=== PATIENT | female | born 1930 | race Caucasian/White ===

== ENCOUNTER 2017-10-30 14:49 | Emergency (ER) | payer MEDICARE ==
[~2017-10-30] VITALS: Ht 157.5 cm; Wt 50.7 kg
[~2017-10-30 14:49] MED LIST: ADVI200C9 PO
[2017-10-30 14:52] VITALS: BP 135/64; PULSE 105; RESP 20; TEMP 100.1; O2SAT 90
[2017-10-30] MEDS ORDERED: SODIUM CHLORIDE 0.9% FLUSH 10 ML FLUSH IV FLUSH PRN (15:30)
[2017-10-30] MEDS ORDERED: SODIUM CHLOR 0.9% 1000 ML INJ 1,000 ML IV SCH (15:30)
[2017-10-30] MEDS ORDERED: DICYCLOMINE HCL 10 MG CAP PO ONE (15:30)
[2017-10-30 15:34] VITALS: RESP 18; O2SAT 94
--- NOTE | 2017-10-30 15:36 | PD ---
HPI Chief Complaint: Cold / Flu Symptoms Time Seen by Provider: 14:57 Travel History International Travel<30 days: No Contact w/Intl Traveler<30days: No Traveled to known affect area: No History of Present Illness HPI The patient is 87-year-old female who presents to the emergency department for cough and cold symptoms since last Monday. Patient complains of a dry mostly nonproductive cough, dry throat, and diarrhea. Patient describes the diarrhea as loose, watery, and present after eating. She also complains of generalized abdominal cramping after eating that is associated with the diarrhea. She does note some left lower quadrant abdominal pain. She denies any specific myalgias or arthralgias. She denies any associated dysuria , frequency, or urgency. She denies any sick contacts at home. Symptoms are moderate. The patient does have a history of non-Hodgkin's lymphoma which is in remission, followed by Dr. Chiang. The patient is also followed by her primary physician, Dr. Billie Evans. [facility] Past Medical History Cancer: Yes (NON HODGKINS LYMPHOMA) Diabetes: No Hepatitis: Yes Hiatal Hernia: No Thyroid Disease: No Past Surgical History Abdominal Surgery: No Cardiac Surgery: No Ear Surgery: No Endocrine Surgery: Yes (THYROID MASS REMOVED) Eye Surgery: No Genitourinary Surgery: No Gynecologic Surgery: No Oral Surgery: No Pacemaker: No Thoracic Surgery: No Social History Tobacco Use: No Allergies-Medications (Allergen,Severity, Reaction): Coded Allergies: No Known Allergies (Verified Adverse Reaction, Unknown, 10/30/17) Reported Meds & Prescriptions Reported Meds & Active Scripts Active Review of Systems Except as stated in HPI: all other systems reviewed are Neg General / Constitutional: No: Fever Cardiovascular: No: Chest Pain or Discomfort Respiratory: Positive: Cough, No: Shortness of Breath, Wheezing Gastrointestinal: Positive: Diarrhea, Abdominal Pain, Loss of Appetite, No: Nausea, Vomiting Genitourinary: No: Dysuria Musculoskeletal: No: Myalgias, Arthralgias Physical Exam Narrative GENERAL: Awake, alert, very pleasant 87-year-old female who appears her stated age and is in no acute respiratory distress. SKIN: Focused skin assessment warm/dry. HEAD: Atraumatic. Normocephalic. EYES: No injection or drainage. ENT: No nasal bleeding or discharge. Slightly dry mucous membranes. Cobblestoning of posterior oropharynx. NECK: Trachea midline. No JVD. CARDIOVASCULAR: Regular, tachycardic with a heart rate of 105. RESPIRATORY: No accessory muscle use. Clear to auscultation. Breath sounds equal bilaterally. GASTROINTESTINAL: Abdomen soft, tender to palpation left lower quadrant. No guarding rigidity. Back: No CVA tenderness. MUSCULOSKELETAL: No obvious deformities. No clubbing. No cyanosis. No edema. NEUROLOGICAL: Awake and alert. No obvious cranial nerve deficits. Motor grossly within normal limits. Normal speech. PSYCHIATRIC: Appropriate mood and affect; insight and judgment normal. Data Data Last Documented VS Vital Signs Date Time Temp Pulse Resp B/P (MAP) Pulse Ox O2 Delivery O2 Flow Rate FiO2 10/30/17 16:21 82 20 141/69 (93) 95 Nasal Cannula 2.00 10/30/17 14:52 100.1 Orders Orders Complete Blood Count With Diff (10/30/17 15:30) Comprehensive Metabolic Panel (10/30/17 15:30) Lipase (10/30/17 15:30) Lactic Acid (10/30/17 15:30) Urinalysis - C+S If Indicated (10/30/17 15:30) Ct Abd/Pel W/O Iv Contrast (10/30/17 15:30) Iv Access Insert/Monitor (10/30/17 15:30) Ecg Monitoring (10/30/17 15:30) Oximetry (10/30/17 15:30) Sodium Chlor 0.9% 1000 Ml Inj (Ns 1000 M (10/30/17 15:30) Sodium Chloride 0.9% Flush (Ns Flush) (10/30/17 15:30) Electrocardiogram (10/30/17 15:30) Chest, Single Ap (10/30/17 15:30) Dicyclomine (Bentyl) (10/30/17 15:30) Legionella Urinary Antigen (10/30/17 15:30) Influenzae A/B Antigen (10/30/17 15:32) Albuterol-Ipratropium Neb (Duoneb Neb) (10/30/17 17:00) Ciprofloxacin (Cipro) (10/30/17 17:15) Metronidazole 500 Mg Inj (Flagyl 500 Mg (10/30/17 17:15) Labs Laboratory Tests Test 10/30/17 16:00 10/30/17 16:13 White Blood Count 6.4 TH/MM3 Red Blood Count 3.89 MIL/MM3 Hemoglobin 12.4 GM/DL Hematocrit 37.0 % Mean Corpuscular Volume 95.2 FL Mean Corpuscular Hemoglobin 31.9 PG Mean Corpuscular Hemoglobin Concent 33.5 % Red Cell Distribution Width 13.0 % Platelet Count 183 TH/MM3 Mean Platelet Volume 7.4 FL Neutrophils (%) (Auto) 50.8 % Lymphocytes (%) (Auto) 39.3 % Monocytes (%) (Auto) 6.5 % Eosinophils (%) (Auto) 0.7 % Basophils (%) (Auto) 2.7 % Neutrophils # (Auto) 3.3 TH/MM3 Lymphocytes # (Auto) 2.5 TH/MM3 Monocytes # (Auto) 0.4 TH/MM3 Eosinophils # (Auto) 0.0 TH/MM3 Basophils # (Auto) 0.2 TH/MM3 CBC Comment DIFF FINAL Differential Comment Blood Urea Nitrogen 12 MG/DL Creatinine 0.84 MG/DL Random Glucose 118 MG/DL Total Protein 6.4 GM/DL Albumin 3.2 GM/DL Calcium Level 9.1 MG/DL Alkaline Phosphatase 68 U/L Aspartate Amino Transf (AST/SGOT) 18 U/L Alanine Aminotransferase (ALT/SGPT) 16 U/L Total Bilirubin 0.5 MG/DL Sodium Level 136 MEQ/L Potassium Level 3.9 MEQ/L Chloride Level 101 MEQ/L Carbon Dioxide Level 28.7 MEQ/L Anion Gap 6 MEQ/L Estimat Glomerular Filtration Rate 64 ML/MIN Lactic Acid Level 0.8 mmol/L Lipase 91 U/L Urine Color YELLOW Urine Turbidity CLEAR Urine pH 6.0 Urine Specific Marion 1.020 Urine Protein TRACE mg/dL Urine Glucose (UA) NEG mg/dL Urine Ketones NEG mg/dL Urine Occult Blood NEG Urine Nitrite NEG Urine Bilirubin NEG Urine Urobilinogen 0.2 MG/DL Urine Leukocyte Esterase NEG MDM Medical Decision Making Medical Screen Exam Complete: Yes Emergency Medical Condition: Yes Medical Record Reviewed: Yes Interpretation(s) EKG reveals normal sinus rhythm with a rate of 94. Left axis deviation. No ischemic changes noted. Date/Time Source Procedure Growth Status 10/30/17 16:05 Nasal Aspirate Influenza Types A,B Antigen (FELICIANO) - Final NEGATIVE FOR FLU A AND B ANTIGEN.... Complete 10/30/17 16:13 Urine Clean Catch Legionella Antigen Pending Received Laboratory Tests Test 10/30/17 16:00 10/30/17 16:13 White Blood Count 6.4 TH/MM3 Red Blood Count 3.89 MIL/MM3 Hemoglobin 12.4 GM/DL Hematocrit 37.0 % Mean Corpuscular Volume 95.2 FL Mean Corpuscular Hemoglobin 31.9 PG Mean Corpuscular Hemoglobin Concent 33.5 % Red Cell Distribution Width 13.0 % Platelet Count 183 TH/MM3 Mean Platelet Volume 7.4 FL Neutrophils (%) (Auto) 50.8 % Lymphocytes (%) (Auto) 39.3 % Monocytes (%) (Auto) 6.5 % Eosinophils (%) (Auto) 0.7 % Basophils (%) (Auto) 2.7 % Neutrophils # (Auto) 3.3 TH/MM3 Lymphocytes # (Auto) 2.5 TH/MM3 Monocytes # (Auto) 0.4 TH/MM3 Eosinophils # (Auto) 0.0 TH/MM3 Basophils # (Auto) 0.2 TH/MM3 CBC Comment DIFF FINAL Differential Comment Blood Urea Nitrogen 12 MG/DL Creatinine 0.84 MG/DL Random Glucose 118 MG/DL Total Protein 6.4 GM/DL Albumin 3.2 GM/DL Calcium Level 9.1 MG/DL Alkaline Phosphatase 68 U/L Aspartate Amino Transf (AST/SGOT) 18 U/L Alanine Aminotransferase (ALT/SGPT) 16 U/L Total Bilirubin 0.5 MG/DL Sodium Level 136 MEQ/L Potassium Level 3.9 MEQ/L Chloride Level 101 MEQ/L Carbon Dioxide Level 28.7 MEQ/L Anion Gap 6 MEQ/L Estimat Glomerular Filtration Rate 64 ML/MIN Lactic Acid Level 0.8 mmol/L Lipase 91 U/L Urine Color YELLOW Urine Turbidity CLEAR Urine pH 6.0 Urine Specific [place] 1.020 Urine Protein TRACE mg/dL Urine Glucose (UA) NEG mg/dL Urine Ketones NEG mg/dL Urine Occult Blood NEG Urine Nitrite NEG Urine Bilirubin NEG Urine Urobilinogen 0.2 MG/DL Urine Leukocyte Esterase NEG Last Impressions Chest X-Ray 10/30/17 1530 Signed Impressions: CONCLUSION: Right [id number] in superior vena cava. Mild interstitial prominence. No con solidation or effusion. Abdomen/Pelvis CT 10/30/17 1530 Signed Impressions: CONCLUSION: 1. Mild proximal sigmoid diverticulitis without evidence for abscess, obstruct ion, free fluid or free air. 2. No acute findings within the remainder of the abdomen. Small hiatal hernia. 3. Mild bronchiectasis in distal airway disease at the left lung base. Differential Diagnosis Differential diagnosis includes influenza, viral syndrome, pneumonia, Legionella enteritis, diverticulitis, dehydration, acute kidney injury, pyelonephritis. Narrative Course IV was established, labs are drawn and sent, the patient was placed on cardiac telemetry monitoring and continuous pulse oximetry monitoring. EKG was ordered and interpreted. Chest x-ray was obtained. Noncontrast CT the abdomen and pelvis was obtained. The patient was administered Bentyl and IV fluids. Legionella antigen via UA was sent to lab. CBC reveals normal white count. Lactic acid is normal at 0.8. Influenza screen is negative. Chest x-ray is negative for pneumonia. CT the abdomen and pelvis reveals mild bronchiectasis in the left lower lung as well as mild diverticulitis in the proximal sigmoid colon. Therefore, the patient was administered Cipro orally and Flagyl intravenously. I had a discussion with the patient regarding 23 hour observation versus discharge home. The patient would prefer to be discharged home. She states her symptoms have improved. I did advise her to return if she has intractable nausea/vomiting, shortness of breath, or inability to tolerate medications. The patient agrees and understands. I did offer 23 hour observation but the patient would prefer to go home, with normal white count, normal lactic acid, and heart rate that is now in the 80s a believe this is manageable at home, but she is advised strongly to return if symptoms worsen or progress at any time. Diagnosis Primary Impression: Diverticulitis Patient Instructions: General Instructions Additional Instructions: Please provide the patient a copy of her labs, x-ray results, and CT results at discharge. Follow-up with your primary physician. Return at any point for worsening or progressing symptoms or inability to tolerate medications. Follow- up with her primary physician tomorrow if possible. Med/Other Pt SpecificInfo: Prescription(s) given Scripts Metronidazole (Flagyl) 500 Mg Tab 500 MG PO BID for Infection for 7 Days, #14 TAB 0 Refills Prov: Donavon Castro MD 10/30/17 Ciprofloxacin (Cipro) 500 Mg Tab 500 MG PO BID for Infection for 7 Days, #14 TAB 0 Refills Prov: Donavon Castro MD 10/30/17 Disposition: 01 DISCHARGE HOME Condition: Stable Donavon Castro MD October 30, 2017 15:36
--- NOTE | 2017-10-30 15:51 | RADRPT ---
EXAM DATE: 10/30/2017 3:48 PM EDT AGE/SEX: 87 years / Female INDICATIONS: Cough. CLINICAL DATA: This is the patient's initial encounter. Patient reports that signs and symptoms have been present for 4 - 6 days and indicates a pain score of 0/10. MEDICAL/SURGICAL HISTORY: Hypertension. Non Hodgkin's lymphoma . Thyroid COMPARISON: No prior [place] exams available for comparison. FINDINGS: No consolidation or effusion. Tortuous aorta. Heart size within normal limits. Right [id number] in superior vena cava. CONCLUSION: Right [id number]-b-Mjkl in superior vena cava. Mild interstitial prominence. No consolidation or effusion . Electronically signed by: Jamie Metcalf MD 10/30/2017 3:50 PM EDT
[2017-10-30 16:20] LABS: AUTOMATED NEUTROPHIL # 3.3 TH/MM3 (1.8-7.7); BASOPHIL # 0.2 TH/MM3 (0-0.2); BASOPHIL % 2.7 % (0.0-2.0); EOSINOPHIL % 0.7 % (0.0-4.0); HEMOGLOBIN 12.4 GM/DL (11.6-15.3); LYMPH % 39.3 % (9.0-44.0); LYMPHOCYTE # 2.5 TH/MM3 (1.0-4.8); MEAN CELL VOLUME 95.2 FL (80.0-100.0); MEAN CORPUSCULAR HEMOGLOBIN 31.9 PG (27.0-34.0); MEAN CORPUSCULAR HGB CONC 33.5 % (32.0-36.0); MEAN PLATELET VOLUME 7.4 FL (7.0-11.0); MONO % 6.5 % (0.0-8.0); MONOCYTE # 0.4 TH/MM3 (0-0.9); NEUT % 50.8 % (16.0-70.0); PLATELET COUNT 183 TH/MM3 (150-450); RED BLOOD COUNT 3.89 MIL/MM3 (4.00-5.30); WHITE BLOOD COUNT 6.4 TH/MM3 (4.0-11.0)
[2017-10-30 16:21] VITALS: BP 141/69; PULSE 82; RESP 20; O2SAT 95
[2017-10-30 16:30] LABS: CHLORIDE 101 MEQ/L (98-107); SODIUM (NA) 136 MEQ/L (136-145)
[2017-10-30 16:33] LABS: CALCIUM 9.1 MG/DL (8.5-10.1)
[2017-10-30 16:34] LABS: ALBUMIN 3.2 GM/DL (3.4-5.0); BICARBONATE 28.7 MEQ/L (21.0-32.0); BLOOD UREA NITROGEN 12 MG/DL (7-18); GLUCOSE,RANDOM 118 MG/DL (74-106)
[2017-10-30 16:35] LABS: BILIRUBIN, URINE NEG (NEG); BLOOD, URINE NEG (NEG); GLUCOSE,URINE NEG (NEG); KETONE, URINE NEG (NEG); NITRITE,URINE NEG (NEG); URINE COLOR YELLOW (YELLW/STRAW); URINE LEUKOCYTE ESTERASE NEG (NEG)
[2017-10-30 16:37] LABS: ALT (GPT) 16 U/L (10-53); AST (GOT) 18 U/L (15-37); CREATININE 0.84 MG/DL (0.50-1.00); GLOMERULAR FILTRATION RATE 64 ML/MIN (>89)
[2017-10-30 16:38] LABS: TOTAL BILIRUBIN ADULT 0.5 MG/DL (0.2-1.0); TOTAL PROTEIN 6.4 GM/DL (6.4-8.2)
[2017-10-30 16:39] LABS: ALKALINE PHOSPHATASE 68 U/L (45-117)
--- NOTE | 2017-10-30 16:59 | RADRPT ---
EXAM DATE: 10/30/2017 4:54 PM EDT AGE/SEX: 87 years / Female INDICATIONS: Left lower abdomen pain and diarrhea for five days. CLINICAL DATA: This is the patient's initial encounter. Patient reports that signs and symptoms have been present for 4 - 6 days and indicates a pain score of 6/10. MEDICAL/SURGICAL HISTORY: Lymphoma. Hypertension. . thyroid mass removed RADIATION DOSE: 5.71 CTDI (mGy) COMPARISON: No prior [place] exams available for comparison. TECHNIQUE: Multiple contiguous axial images were obtained through the abdomen. Images were obtained using multiple row detector helical technique. Using dose reduction techniques, radiation dose was ke pt as low as reasonably achievable to obtain optimal diagnostic quality images. FINDINGS: At the left lung base is peribronchial thickening and some distal airway disease with mild bronchiect asis. No acute findings in the liver, spleen, adrenals, kidneys or pancreas. No calcified gallstones or elvin iary ductal dilatation. Small hiatal hernia. Mild scoliosis with moderate degenerative change in the lumbar spine. No pelvic masses or adenopathy. Colonic diverticula noted with some mild inflammatory c hanges around the proximal sigmoid colon most characteristic of a mild sigmoid diverticulitis. CONCLUSION: 1. Mild proximal sigmoid diverticulitis without evidence for abscess, obstruction, free fluid or ap e air. 2. No acute findings within the remainder of the abdomen. Small hiatal hernia. 3. Mild bronchiectasis in distal airway disease at the left lung base. Electronically signed by: Jamie Metcalf MD 10/30/2017 4:58 PM EDT
[2017-10-30] MEDS ORDERED: RESP: ALBUTEROL 2.5 MG/IPRATROPIUM 0.5 MG NEB (SCH) NEB ONE (17:00)
[2017-10-30 17:10] VITALS: O2SAT 98
[2017-10-30] MEDS ORDERED: CIPR-9 PO (17:10)
[2017-10-30] MEDS ORDERED: METR-1 PO (17:10)
[2017-10-30 17:12] LABS: MUCUS URINE RARE /lpf (OCC); SQUAMOUS EPITHELIAL CELL URINE 0-1 /hpf (0-5); WBC, URINE 0-2 /hpf (0-5)
[2017-10-30] MEDS ORDERED: CIPROFLOXACIN 500 MG TAB PO ONE (17:15)
[2017-10-30] MEDS ORDERED: metroNIDAZOLE 500 MG INJ 100 ML IV ONE (17:15)
[2017-10-30 18:56] VITALS: BP 111/59; PULSE 85; RESP 18; O2SAT 95
--- NOTE | 2017-10-31 14:01 | EKG ---
Date Performed: 10/30/2017 Time Performed: 15:37:44 PTAGE: 87 years EKG: Sinus rhythm MARKED LEFT AXIS DEVIATION POSSIBLE RIGHT VENTRICULAR CONDUCTION DELAY ABNORMAL ECG NO PREVIOUS TRACING DOCTOR: Del Ahn Interpretating Date/Time 10/31/2017 13:59:46
== END 2017-10-30 19:04 | disposition home or self-care (01) ==
LOC: PHED 14:49
DX: K57.32 Diverticulitis of large intestine without perforation or abscess without bleeding (principal); J47.9 Bronchiectasis, uncomplicated; R94.31 Abnormal electrocardiogram [ECG] [EKG]; K75.9 Inflammatory liver disease, unspecified; K44.9 Diaphragmatic hernia without obstruction or gangrene; Z85.72 Personal history of non-Hodgkin lymphomas
CPT/HCPCS: 71045; 74176; 80053; 81001; 83605; 83690; 85025; 87449; 87804; 93005; 94664; 96361; 96365; 99285; J1642; J7030